=== PATIENT | female | born 1960 | race Caucasian/White ===

== ENCOUNTER 2017-08-12 07:25 | Outpatient (CLI) | payer OTHER | END 2017-08-12 07:29 | disposition home or self-care (01) | LOC: SONOGRAMA 07:25 | DX: E04.1 Nontoxic single thyroid nodule (principal) ==

== ENCOUNTER → 2019-04-20 | Outpatient (CLI) | payer OTHER | END | disposition home or self-care (01) | LOC: SONOGRAMA 07:13 | DX: E04.1 Nontoxic single thyroid nodule (principal) ==

== ENCOUNTER 2023-06-15 07:59 | Outpatient (CLI) | payer OTHER | END 2023-06-15 08:12 | disposition home or self-care (01) | LOC: TOM 07:59 | DX: C50.512 Malignant neoplasm of lower-outer quadrant of left female breast (principal) ==

== ENCOUNTER 2023-07-02 06:17 | Day surgery (SDC) | payer OTHER ==
[~2023-07-02] VITALS: Ht 162.6 cm; Wt 74.8 kg
[~2023-07-02 06:17] MED LIST: ARIMIDEX PO; CRESTOR20 MG PO; FARXIGA10 MG PO; LOSARTAN POTASS50 MG PO; METFORMIN HCL1000 M2 PO
== END 2023-07-02 19:15 | disposition home or self-care (01) ==
LOC: CIR.AMB 06:17
PROVIDERS: ATTEND Surgery
DX: C50.512 Malignant neoplasm of lower-outer quadrant of left female breast (principal); N62 Hypertrophy of breast; R59.0 Localized enlarged lymph nodes; D24.1 Benign neoplasm of right breast; D24.2 Benign neoplasm of left breast; N65.1 Disproportion of reconstructed breast; Z88.0 Allergy status to penicillin; Z20.822 Contact with and (suspected) exposure to COVID-19; Z91.041 Radiographic dye allergy status
CPT/HCPCS: 19301; 38525; 19318; 19281; A9541; L8699